=== PATIENT | female | born 1985 | race Two or more races ===

== ENCOUNTER 2017-04-16 22:49 | Emergency (ER) | payer SELFPAY ==
[2017-04-16 22:49] VITALS: BMI 22.4
[2017-04-16 23:26] VITALS: BP 127/103; PULSE 100; RESP 20; TEMP 98.9; O2SAT 98
== END 2017-04-16 23:22 | disposition left against medical advice (07) ==
LOC: C.ER 22:49
DX: R10.11 Right upper quadrant pain (principal); Z02.9 Encounter for administrative examinations, unspecified

== ENCOUNTER 2018-05-19 15:07 | Emergency (ER) | payer OTHER ==
[2018-05-19 15:08] VITALS: BMI 22.4
[2018-05-19 15:14] VITALS: BP 166/117; PULSE 104; RESP 18; TEMP 98.9; O2SAT 97
--- NOTE | 2018-05-19 16:37 | C.PDOC ---
History Of Present Illness 32 year old female presents to the ED with complaints of left wrist injury sustained yesterday. States she was playing paint ball and was hit on the left wrist from 3 feet away. She denies any numbness or tingling and is able to move all digits. Time Seen by Provider: 05/19/18 15:55 Chief Complaint (Nursing): Upper Extremity Problem/Injury History Per: Patient History/Exam Limitations: no limitations Onset/Duration Of Symptoms: Days Current Symptoms Are (Timing): Still Present Past Medical History Reviewed: Historical Data, Nursing Documentation, Vital Signs Vital Signs: Last Vital Signs Temp 98.9 F 05/19/18 15:11 Pulse 104 H 05/19/18 15:11 Resp 18 05/19/18 15:11 BP 166/117 H 05/19/18 15:11 Pulse Ox 97 05/19/18 17:33 - Medical History PMH: Migraine Family History: States: Unknown Family Hx - Social History Hx Tobacco Use: Yes Hx Alcohol Use: No Hx Substance Use: No - Immunization History Hx Tetanus Toxoid Vaccination: No Hx Influenza Vaccination: No Hx Pneumococcal Vaccination: No Review Of Systems Except As Marked, All Systems Reviewed And Found Negative. Musculoskeletal: Positive for: Hand Pain (left wrist) Skin: Positive for: Lesions (from paint ball) Neurological: Negative for: Weakness, Numbness, Incoordination Physical Exam - Physical Exam Appears: Well, Non-toxic, No Acute Distress Skin: Warm, Dry, No Rash Head: Atraumatic, Normacephalic Eye(s): bilateral: Normal Inspection Oral Mucosa: Moist Neck: Normal ROM Chest: Symmetrical Extremity: Normal ROM (with intact ROM of all digits), Tenderness (over left wrist), Capillary Refill (< 2 sec), No Deformity, Other (Round ecchymotic lesion and swelling to left wrist) Pulses: Left Radial: Normal, Right Radial: Normal Neurological/Psych: Oriented x3, Normal Speech ED Course And Treatment O2 Sat by Pulse Oximetry: 97 (RA) Pulse Ox Interpretation: Normal - Other Rad Left Wrist x-ray X-Ray: Viewed By Me, Read By Radiologist Interpretation: Accession No. : [id number]. Patient Name / ID : IRIS KERN / [id number]. Exam Date : 05/19/2018 16:12:40 ( Approved ). Study Comment : Sex / Age : F / 32Y. Creator : Paulette Hanson. Dictator : Obey Vazquez MD. Ged Preparation Teacher : Handle Sewer : Obey Vazquez MD. Approver2 : Report Date : 05/19/2018 16:33:42. My Comment : . Date of service: 05/19/2018. PROCEDURE: Left Wrist Radiographs. . HISTORY: pain s.p paintball injury. COMPARISON: None. FINDINGS: BONES: No acute fracture. JOINTS: Unremarkable. SOFT TISSUES: Normal. OTHER FINDINGS: None. IMPRESSION: No demonstrated fracture or dislocation. Medical Decision Making Medical Decision Making: Impression: Left Wrist Injury Plan: * Motrin 600 mg PO * Left Wrist X-Ray Progress, Reassess and Dispo: Counseled patient regarding normal x-rays. Discussed results with patient, all questions answered. On re-examination, patient is resting comfortably in no acute distress. Patient reports improvement of symptoms and is stable for discharge. Disposition Counseled Patient/Family Regarding: Diagnosis, Need For Followup, Rx Given - Disposition Referrals: Alessia Dejesus MD [Staff Provider] - Disposition: HOME/ ROUTINE Disposition Time: 16:35 Condition: GOOD Additional Instructions: Your xray was normal, no fracture. Please apply ice to area 15 minutes three times a day. Take Motrin as needed for pain every 6 hours, with food to not upset stomach. Follow up with orthopedic if pain persists over one week. Prescriptions: Ibuprofen [Motrin] 600 mg PO Q8 #30 tab Instructions: Contusion (DC) Forms: [facility] (Namibian), Work Excuse - POA Present On Arrival: None - Clinical Impression Clinical Impression: Wrist contusion - PA / SENIOR PLANNING ANALYST / Resident Statement MD/DO has reviewed & agrees with the documentation as recorded. - Scribe Statement The provider has reviewed the documentation as recorded by the Scribe (Meme Mejia) All medical record entries made by the Scribe were at my direction and personally dictated by me. I have reviewed the chart and agree that the record accurately reflects my personal performance of the history, physical exam, medical decision making, and the department course for this patient. I have also personally directed, reviewed, and agree with the discharge instructions and disposition.
--- NOTE | 2018-05-19 16:47 | RAD ---
Date of service: 05/19/2018 PROCEDURE: Left Wrist Radiographs. HISTORY: pain s.p paintball injury COMPARISON: None. FINDINGS: BONES: No acute fracture. JOINTS: Unremarkable. SOFT TISSUES: Normal. OTHER FINDINGS: None. IMPRESSION: No demonstrated fracture or dislocation.
== END 2018-05-19 17:19 | disposition home or self-care (01) ==
LOC: C.ER 15:07
DX: S60.212A Contusion of left wrist, initial encounter (principal); W22.8XXA Striking against or struck by other objects, initial encounter